=== PATIENT | female | born 1980 | race Caucasian/White ===

== ENCOUNTER 2018-10-09 15:08 | Outpatient (CLI) | payer BC ==
[~2018-10-09 15:08] MED LIST: Gadobenate Dimeglumine 529 MG/1 ML (20ML VIAL) ONE
--- NOTE | 2018-10-09 16:35 | MRI ---
MRI BRAIN WITH AND WITHOUT IV CONTRAST: Date: 10/09/18 HISTORY: Frequent headaches. FINDINGS: No restricted diffusion is seen. No evidence of infarct, hemorrhage, mass, midline shift, or abnormal extra-axial fluid collections are seen. The ventricular size is normal and the basilar cisterns are patent. No abnormal postcontrast enhancement is seen. A small amount of fluid is seen in the right ma stoid air cells. A small mucus retention cyst versus polyp is noted in the right maxillary sinus. No tonsillar herniation is seen. IMPRESSION: Normal MRI of the brain. POS: OFF
== END 2018-10-09 15:09 | disposition home or self-care (01) ==
LOC: BICMRI 15:08
PROVIDERS: ATTEND Nurse Practitioner Acute Care
DX: R51 Headache (principal)
CPT/HCPCS: 70553; A9577